=== PATIENT | female | born 1960 | race Caucasian/White ===

== ENCOUNTER 2024-08-06 15:51 | Emergency (ER) | payer OTHER ==
[~2024-08-06] VITALS: Ht 162.6 cm; Wt 100.0 kg
[2024-08-06 16:24] VITALS: BP 133/65; PULSE 80; RESP 17; TEMP 98.1; O2SAT 96
[2024-08-06] MEDS ORDERED: ATOR40TA28 PO (16:47)
[2024-08-06] MEDS ORDERED: LISI-894 PO (16:47)
[2024-08-06] MEDS ORDERED: CHOL500050 PO (16:47)
[2024-08-06] MEDS ORDERED: PROM118S5 PO (16:47)
[2024-08-06] MEDS ORDERED: LEVO88TA4 PO (16:47)
[2024-08-06] MEDS ORDERED: BENZ-227 PO (16:47)
[2024-08-06] MEDS ORDERED: SODI44SP18 NASAL (16:47)
[2024-08-06] MEDS ORDERED: ACET325S20 PR (16:47)
[2024-08-06] MEDS ORDERED: ALBU18HF12 IH (16:47)
[2024-08-06] MEDS ORDERED: NAPR-1195 PO (16:47)
[2024-08-06] MEDS ORDERED: ACET-2247 PO (19:02)
[2024-08-06] MEDS: KETOROLAC TROMETHAMINE 60 MG/2 ML VIAL IM ONE (19:20)
[2024-08-06] MEDS: METHOCARBAMOL 500 MG TABLET PO ONE (19:20)
[2024-08-06] MEDS ORDERED: HYDR-4062 PO (19:21)
[2024-08-06] MEDS ORDERED: IBUP-1554 PO (19:21)
[2024-08-06] MEDS ORDERED: METH-659 PO (19:21)
[2024-08-06] MEDS: ACETAMINOPHEN 500 MG TABLET PO ONE (19:21)
== END 2024-08-06 19:43 | disposition home or self-care (01) ==
LOC: EMS 16:10
DX: M54.41 Lumbago with sciatica, right side (principal); M76.61 Achilles tendinitis, right leg; I10 Essential (primary) hypertension; E78.00 Pure hypercholesterolemia, unspecified; E03.9 Hypothyroidism, unspecified; Z90.49 Acquired absence of other specified parts of digestive tract; Z79.899 Other long term (current) drug therapy
CPT/HCPCS: 99283; 96372; J1885